=== PATIENT | female | born 1965 | race Caucasian/White ===

== ENCOUNTER 2025-07-19 15:00 | Emergency (ER) | payer SELFPAY ==
[2025-07-19 15:07] VITALS: BP 127/78; PULSE 84; RESP 16; TEMP 36.6; O2SAT 97; BMI 26.5
--- NOTE | 2025-07-19 15:14 | DI.RAD.S_ITS ---
PROCEDURE: XR SHOULDER RT MIN 2V INDICATIONS: r/o subluxation TECHNIQUE: 3 views of the shoulder were acquired. COMPARISON: None. FINDINGS: Bones: No fractures or dislocations. No suspicious bony lesions. Visualized ribs appear intact. Soft tissues: No suspicious soft tissue calcifications. IMPRESSION: No acute bony abnormality. Dictated by: Constantine Galeano M.D. on 07/19/2025 at 14:39 Approved by: Constantine Galeano M.D. on 07/19/2025 at 14:40
--- NOTE | 2025-07-19 16:02 | ED.UPPEXIN ---
HPI - Extremity Injury (Upper) General Chief Complaint: Extremity Injury, Upper Stated Complaint: dislocated right shoulder Time Seen by Provider: 07/19/25 16:01 Source: patient Mode of arrival: Ambulatory Limitations: no limitations History of Present Illness HPI narrative: 60-year-old female without significant past medical history presenting with shoulder injury. Patient states that she accidentally skipped 1 step upon descending and fell dislocating her shoulder. Patient was able to reduce this independently however this recurred again when she was attempting to get dressed and so she presented for further evaluation. Patient denies history before this of prior dislocations. She denies additional injury sustained while falling. Patient has no weakness, numbness, tingling. MD complaint: injury to: right and shoulder Handedness: right Context: fall Review of Systems Review of Systems ROS Unobtainable: All systems reviewed & are unremarkable except as noted in HPI and below Constitutional Constitutional: Denies weakness Cardiovascular Cardiovascular: Denies radiating jaw, neck or arm pain and Denies dyspnea Respiratory Respiratory: Denies dyspnea Musculoskeletal Musculoskeletal: Denies deformity, Reports arthralgias, Denies numbness and Denies tingling Integumentary/Breasts Skin/Breast: Denies unusual bruising Neurologic Neurologic: Denies numbness, Denies tingling and Denies weakness Psychiatric Psychiatric: Reports system reviewed and no additional complaints, except as documented Hematologic/Lymphatic Hematologic/Lymphatic: Denies easy bleeding and Denies easy bruising Exam Narrative Exam Narrative: GENERAL: in no distress, not toxic not dyspneic HEAD: Normocephalic. EYES: Pupils equal round ENT: Mucous membranes moist. NECK: Trachea midline. CARDIOVASCULAR: Regular rate and rhythm RESPIRATORY: Clear to auscultation. Breath sounds equal bilaterally. No wheezes, rales, or rhonchi. GASTROINTESTINAL: Abdomen soft, non-tender EXTREMITIES: No gross deformities. Right upper extremity in a sling, without focal tenderness to palpation or bony deformity. Humeral head in appropriate alignment. BACK: No flank tenderness. NEURO: AOx4. Clear speech SKIN: Warm and dry PSYCH: Not anxious, is cooperative Initial Vital Signs Initial Vital Signs: Vital Signs Temperature 97.8 F 07/19/25 15:07 Pulse Rate 84 07/19/25 15:07 Respiratory Rate 16 07/19/25 15:07 Blood Pressure 127/78 07/19/25 15:07 Pulse Oximetry 97 07/19/25 15:07 Oxygen Delivery Method Room Air 07/19/25 15:07 Const General: cooperative, healthy appearing and No acute distress Extrem Right upper extremity: shoulder/upper arm Details: axillary nerve sensory function normal and abnormal ROM; no swelling, no ecchymosis and no deformity Course Orders Ordered: ED Orders 07/19/25 15:14 XR shoulder RT 2+ views Stat Vital Signs Vital signs: Vital Signs - 8 hr 07/19/25 15:07 Temperature 97.8 F Pulse Rate 84 Respiratory Rate 16 Blood Pressure 127/78 Pulse Oximetry 97 Oxygen Delivery Method Room Air MDM - Extremity Injury (Upper) Differential Diagnosis Differential diagnosis: Likely dislocation of shoulder, fracture of humerus, fracture of clavicle and other (Ligamentous injury, adhesive capsulitis) Imaging Data Extremity x-ray #1: My Impression: X-ray of the right shoulder without evidence of fracture or dislocation on my independent review, no notable joint abnormality. Radiologist's Impression: PROCEDURE: XR SHOULDER RT MIN 2V INDICATIONS: r/o subluxation TECHNIQUE: 3 views of the shoulder were acquired. COMPARISON: None. FINDINGS: Bones: No fractures or dislocations. No suspicious bony lesions. Visualized ribs appear intact. Soft tissues: No suspicious soft tissue calcifications. IMPRESSION: No acute bony abnormality. Dictated by: Constantine Galeano M.D. on 07/19/2025 at 14:39 MDM Narrative Medical decision making narrative: History and exam as above. Patient presenting with dislocation and independent reduction of right shoulder. We will plan for immobilization with sling and patient counseled regarding pain management with Tylenol, ibuprofen, ice, immobilization. Discussed follow-up with PCP and orthopedic surgery for further evaluation of potential soft tissue/ligamentous injury. Discharge Plan Departure Patient Disposition: Home Clinical Impression: Dislocation, shoulder, recurrent Qualifiers: Laterality: right Qualified Code(s): M24.411 - Recurrent dislocation, right shoulder Instructions: DI for Shoulder Dislocation Activity Restrictions/Additional Instructions: You were seen in the emergency department for your shoulder dislocation and injury. Evaluation here was overall reassuring and we do not see any evidence of fracture or persistent dislocation. We are similarly reassured that there does not seem to be injury to the blood vessels or nerves of the upper extremity. It is certainly possible that you have sustained injury to the ligaments or joint space itself. Because of this, we recommend continuing to use a sling and maintaining immobilization of the joint to allow for healing. For the next 24-48 hours we would recommend using ice, Tylenol and ibuprofen, rest and immobilization. Please follow-up with the orthopedic surgeons when you get Home. If you develop recurrent dislocation, worsening pain, numbness, tingling, discoloration, or other symptoms that are concerning to you, this may warrant further evaluation in emergency department. Stand Alone Forms: Patient Portal/API
== END 2025-07-19 16:20 | disposition home or self-care (01) ==
PROVIDERS: Emergency Provider Student in an Organized Health Care Education/Training Program
DX: M24.411 Recurrent dislocation, right shoulder (principal); W10.9XXA Fall (on) (from) unspecified stairs and steps, initial encounter
CPT/HCPCS: 73030; 99282; 99283